=== PATIENT | male | born 1975 | race Caucasian/White ===

== ENCOUNTER → 2019-04-21 | Outpatient (REF) | LOC: M LAB LCGH 14:48 | PROVIDERS: ATTEND Physician Assistant | DX: L57.0 Actinic keratosis (principal) ==

== ENCOUNTER → 2020-12-14 | Outpatient (REF) | payer OTHER | LOC: M LAB REF 18:49 | PROVIDERS: ATTEND Physician Assistant | DX: L57.0 Actinic keratosis (principal) ==